=== PATIENT | male | born 1940 | race Caucasian/White ===

== ENCOUNTER 2016-12-08 09:14 | Emergency (ER) | payer OTHER ==
[~2016-12-08] VITALS: Wt 99.8 kg
[~2016-12-08 09:14] MED LIST: 'XANAX0.25 MG PO; ALBUTEROL INH; ALLEGRA ALLERGY60 M2 PO; AMOXICILLIN250 MG PO; AMOXICILLIN500 M3 PO; ASPIR 8181 MG PO; ASPIRIN81 M1 PO; CARVEDILOL3.125 MG PO; CEFUROXIME AXE250 MG PO; CENTRUM1 TAB PO; CIPRO500 MG PO; COLACE1 SUP R; COLACE100 MG PO; DOXYCYCLINE MO100 M1 PO; DUONEB 3 MG/3 ML3 M1 NEB; EXELON4.6 MG/24 T; FEXOFENADINE H180 MG PO; FEXOFENADINE60 MG PO; FLOMAX0.4 MG PO; FLONASE0.05 MG/AC NS; FLOVENT DI50 MCG/ACT IH; GABAPENTIN300 MG PO; LANOXIN0.125 MG PO; LASIX20 MG PO; LASIX40 MG PO; LEVOTHYROXIN0.025 MG PO; LEVOTHYROXINE0.05 MG PO; LISINOPRIL/HCTZ1 TA1 PO; LISINOPRIL10 M1 PO; LISINOPRIL20 MG PO; LISINOPRIL5 MG PO; Lopressor25 MG PO; MEDROL DOSEPAK4 MG PO; METOPROLOL50 MG PO; MIRAPEX0.5 MG PO; MUCOMIST 26 GM/30 ML INH; MUPIROCIN2% TP; NITROFURAN25 MG/5 M2 PO; OMEPRAZOLE D/R20 MG PO; OMEPRAZOLE MAGN20 MG PO; OMEPRAZOLE20 MG PO; OXAPROZIN600 MG PO; OXYCODONE HCL10 M1 PO; OXYCODONE HCL5 MG PO; OXYCONTIN10 MG PO; PAROXETINE HCL20 MG PO; PAXIL20 M1 PO; PRAVACHOL20 MG PO; PRAVASTATIN SOD20 MG PO; PREDNISONE10 MG PO; PROTONIX40 MG PO; PULMICORT RESP0.5 MG NEB; REQUIP0.5 MG PO; RIVASTIGMINE1 EACH T; ROPINIROLE HYDRO1 MG PO; SINGULAIR4 MG PO; SOLU-MEDROL40 MG PO; Synthroid,Levo75 MCG PO; TAMSULOSIN HYD0.4 MG PO; TERAZOSIN5 MG PO; Ventolin 02.5 MG/3 M INH; XALATAN 0.005%2.5 ML INTRAOC; XANAX0.5 MG PO; ZITHROMAX250 MG PO; ZOSYN 50 ML50 ML IV
[2016-12-08 09:31] VITALS: BP 123/66
== END 2016-12-08 10:05 | disposition home or self-care (01) ==
LOC: ED 09:14
DX: T83.010A Breakdown (mechanical) of cystostomy catheter, initial encounter (principal); F17.200 Nicotine dependence, unspecified, uncomplicated; I13.0 Hypertensive heart and chronic kidney disease with heart failure and stage 1 through stage 4 chronic kidney disease, or unspecified chronic kidney disease; I50.9 Heart failure, unspecified; J44.9 Chronic obstructive pulmonary disease, unspecified; Z79.899 Other long term (current) drug therapy

== ENCOUNTER 2016-12-24 15:33 | Inpatient (IN) | payer OTHER ==
[~2016-12-24] VITALS: Ht 180.3 cm; Wt 76.2 kg
--- NOTE | ~2016-12-24 | DS ---
[place], [place] DISCHARGE SUMMARY NAME: BARBRA LAMB [facility] #: [id number] UNIT #: [id number] ROOM: 521 DOCTOR: LIBORIO ODOM MD BIRTHDATE: [birth year] DOS: 12/28/2016 The patient is very well known to us, was admitted on 12/24/2016, discharged 12/28/2016. DIAGNOSES: 1. Urinary tract infection with pseudomonas sensitive to meropenem and Zosyn. Negative blood cultures. 2. Adult failure to thrive. 3. Difficulty swallowing, status post percutaneous endoscopic gastrostomy tube placement. 4. History of suprapubic catheter placement. 5. Benign hypertension. 6. Mixed hyperlipidemia. 7. History of benign prostatic hypertrophy with a suprapubic catheter placement. 8. Frailty with falls, history of chronic low back pain with history of laminectomy, avoid too many pain medications and anxiolytics in this patient because of his continued confusion and frequent falling. HOSPITAL COURSE: This patient is very well known to us, comes in with complaints the urine was dark and cloudy and he was quite confused. The patient was diagnosed with possible UTI and sepsis and was admitted. After admission, IV fluids were given, IV antibiotics were started. Wooten cultures were done. Blood cultures are negative. Urine culture shows Pseudomonas aeruginosa. The patient underwent a speech study and Dr. Salcedo was consulted. A PEG tube was placed. The patient is tolerating PEG feeding. He is currently n.p.o. Speech needs to work with him and try to advance his diet if possible as an outpatient when he is more strong. He is fairly awake and alert and oriented right now, but he does get agitated and tries to climb out of bed, which is a continued problem and will keep happening even at the custodial, so we have to be careful. I have avoided giving him any anxiolytics and pain medications because of his confusion. For his tinea infection, he has been placed on nystatin cream. His pressures are fairly controlled. His last labs, WBC count is 9.9, hemoglobin 12.6, hematocrit 39.0, platelets 285. BMP: Glucose 68, BUN 11, creatinine 0.64. Electrolytes were normal. DISCHARGE MEDICATIONS: Nystatin cream for local application to intertriginous areas, cyclobenzaprine 5 mg twice a day p.r.n., Pravachol 20 daily, lisinopril 2.5 daily, Paxil 20 daily, Lasix which has been discontinued, omeprazole 20 daily, levothyroxine 50 mcg daily, meropenem 1 g q. 8 for 7 more days, oxycodone 5 b.i.d. p.r.n. DIET: Isosource tube feeding at 30 mL an hour. [place], [place] DISCHARGE SUMMARY NAME: BARBRA LAMB [facility] #: [id number] UNIT #: [id number] ROOM: 521 DOCTOR: LIBORIO ODOM MD BIRTHDATE: [birth year] LIBORIO ODOM MD CM:ANAYA 0 LIBORIO ODOM MD 12/28/16 0943 interface
--- NOTE | ~2016-12-24 | PR ---
[place], [place] PROGRESS NOTE [id number] #: [id number] ROOM: 521 DOCTOR: LIBORIO ODOM MD BIRTHDATE: [birth year] DOS: 12/26/2016 SUBJECTIVE: The patient is feeling okay, does not have any new complaints. He states he is feeling better. Nurses told me that he was quite agitated, but this morning he is fairly awake and alert and oriented, did communicate. OBJECTIVE: VITAL SIGNS: Blood pressure is 128/73, pulse of 85, respirations 20, temperature 97.5. LUNGS: Diminished breath sounds, a few scattered rhonchi which is chronic. HEART: Regular. ABDOMEN: Soft. EXTREMITIES: Without any edema. Multiple pressure point areas are red. LABORATORY DATA: Urine culture shows Pseudomonas aeruginosa, which is not sensitive to floxins. BMP this morning, glucose 68, BUN 11, creatinine 6.64. Electrolytes were normal. WBC count is normal at 9.9. ASSESSMENT AND PLAN: 1. Rhabdomyolysis following a fall, which is improving, myoglobin will be ordered for tomorrow. He is on slow IV hydration. 2. Urinary tract infection with Pseudomonas aeruginosa, meropenem will be started. 3. Adult failure to thrive. Social Service will be consulted for placement. LIBORIO ODOM MD CM:PNTRANS [id number] LIBORIO ODOM MD 12/27/16 0025 interface
--- NOTE | ~2016-12-24 | PR ---
[place], [place] PROGRESS NOTE [id number] #: [id number] ROOM: 510 DOCTOR: LIBORIO ODOM MD BIRTHDATE: [birth year] DOS: 12/28/2016 SUBJECTIVE: The patient is doing fine without any complaints. Denies any chest pains, palpitations. He says he feels better, but he is agitated and tries to climb out of bed. OBJECTIVE: VITAL SIGNS: Pressure is 119/66, pulse of 104, respirations 20, temperature 98.1. LUNGS: Diminished breath sounds. No wheezes heard. HEART: Regular. ABDOMEN: Soft. PEG tube in place, suprapubic catheter in place. No redness noticed around these tubes. LABORATORY DATA: Blood culture shows no bacterial growth. Urine culture shows Pseudomonas sensitive to meropenem, which the patient is already on. ASSESSMENT AND PLAN: 1. Urinary tract infection with Klebsiella pneumoniae on intravenous meropenem, which we will continue as an outpatient. 2. PEG tube placement for difficulty swallowing. He started on his diet. 3. Suprapubic catheter placement. Catheter site had some fungal infection, which is corrected. 4. Adult failure to thrive for placement today. LIBORIO ODOM MD CM:PNTRANS [phone] LIBORIO ODOM MD 12/29/166 interface
--- NOTE | ~2016-12-24 | PR ---
[place], [place] PROGRESS NOTE NAME: BARBRA LAMB [facility] #: [id number] UNIT #: [id number] ROOM: 521 DOCTOR: LIBORIO ODOM MD BIRTHDATE: [birth year] DOS: 12/27/2016 SUBJECTIVE: The patient is about the same. Does not have any new complaints. The patient underwent PEG tube placement after the endoscopy. Dr. Salcedo felt that the patient needed a PEG tube placement. OBJECTIVE: VITAL SIGNS: This morning, blood pressure is 128/68, pulse of 52, respirations 22, temperature 97.9. LUNGS: Diminished breath sounds. No wheezes, rales or rhonchi heard this morning except for a few chronic rhonchi. HEART: Regular. ABDOMEN: Obese, soft. PEG tube and suprapubic site looks clean. EXTREMITIES: Without any edema. ASSESSMENT AND PLAN: 1. Urinary tract infection with the Pseudomonas aeruginosa on IV meropenem with negative blood cultures. 2. Adult failure to thrive, to go to a rehab center when precertification is obtained. 3. Difficulty swallowing. The patient underwent a PEG tube placement yesterday. PEG feeding will be started today. LIBORIO ODOM MD CM:LUZ [id number] LIBORIO ODOM MD 12/28/16 0100 interface
--- NOTE | ~2016-12-24 | O ---
[place], [place] OPERATIVE NOTE NAME: BARBRA LAMB UNIT #: [id number] ROOM: 521 DOCTOR: JAVI AUGUSTIN MD BIRTHDATE: [birth year] DOS: 12/26/2016 INDICATIONS: A 76-year-old patient who has presented with chief complaint of dysphagia, epigastric distress, and abdominal pain. The patient with tracheostomy, suprapubic catheter, dysphagia, epigastric pain, emaciation. Bedridden essentially. PROCEDURE: Today's procedure part of investigation is panendoscopy plus PEG tube placement. PREMEDICATION: Versed and Diprivan. SCOPE: Olympus forward-viewing gastroscope Q10 video. REPORT: After putting the patient in the left lateral position and after application of lubricant to the scope, the scope was introduced. Thereafter, under direct visualization, advanced through the length of the esophagus without difficulty. Esophagus, cervical, thoracic and distal within normal limits. Gastric pouch was entered. Gastritis was noticed. Duodenal bulb, second and third part within normal limits. Antral biopsy obtained. After this, the patient was placed in supine position. Case was discussed with the son. After this patient was placed in supine position, anterior abdominal wall aseptically was prepped. Transillumination sign in the subxiphoid area was noticed. 2 mL of Xylocaine was injected. Trocar was introduced in the same spot. Guidewire was advanced, grasped with forceps, orally extracted. Gastrostomy tube Sami 20 was anchored to it, orally recovered and anchors placed, patency checked. Tolerated the procedure well. IMPRESSION: Gastritis, dysphagia, weight loss, trach dependency, suprapubic catheter dependency, and now percutaneous endoscopic gastrostomy tube placement. PLAN AND DISCUSSION: Ensure 1 can 6 times per day. Flush of water 100 mL q. 3 hours. At the present time, keeping the patient n.p.o. until future reassessment of the swallow. [place], [place] OPERATIVE NOTE NAME: BARBRA LAMB UNIT #: [id number] ROOM: 521 DOCTOR: JAVI AUGUSTIN MD BIRTHDATE: [birth year] JAVI AUGUSTIN MD CM:OPRECORD:OPERATIVE NOTE [id number] LIBORIO AUGUTSIN MD 12/26/16 1639 interface
--- NOTE | ~2016-12-24 | CON ---
[place], [place] REPORT OF CONSULTATION [id number] UN[facility] #: [id number] ROOM: 521 DOCTOR: JAVI AUGUSTIN MD BIRTHDATE: [birth year] DOS: 12/26/2016 GASTROENDOSCOPIC REPORT HISTORY OF PRESENT ILLNESS: A 76-year-old patient who has presented with chief complaint of abdominal pain, epigastric distress, undergoing investigation. The patient with also pelvic pain, also testicular sac pain, suspected epididymitis. PAST MEDICAL HISTORY: Associated with hypertension, hyperlipidemia, respiratory insufficiency, tracheostomy, multiple falls, suprapubic catheter, trach as a part of the surgical finding. SOCIAL HISTORY: Nonsmoker, nonalcohol consumer. FAMILY HISTORY: Noncontributory. ALLERGIES: To no known medication. REVIEW OF SYSTEMS: GENERAL: Very difficult to communicate, however. HEENT: Denies double vision, blurred vision. RESPIRATORY: Denies shortness of breath; however, on tracheostomy. CARDIOVASCULAR: Denies chest pain. DIGESTIVE SYSTEM: Epigastric pain, abdominal pain. PHYSICAL EXAMINATION: Otherwise, HEENT: Within normal limit. Mouth some thrush. Edentulous. NECK: Supple, no thyromegaly. Tracheostomy in place. LUNGS: Decreased air entry bilaterally. HEART: Normal sinus rhythm, no gallop, no murmur. ABDOMEN: Flat, soft. No hepato-organomegaly. Bowel sounds present. Suprapubic catheter in place. EXTREMITIES: Muscle wasting noticed. NEUROLOGIC: Appears to be alert. LABORATORY DATA: Reviewed. INR 1.1. Lactic acid 1.2. CBC: White blood cell 12, H and H of 12 and 40. Urinalysis unremarkable. Chest x-ray, no acute disease. Comprehensive metabolic panel, electrolytes balanced. Liver function test, SGOT 80. C-reactive protein 13. BNP of 900. Troponin within normal limit. Urine cultures, greater than 100,000 bacteria. CBC differential within normal limits. Electrolytes balanced. IMPRESSION: Abdominal pain, epigastric distress, respiratory insufficiency, history of congestive heart failure, history of urinary tract infection, angina, hypertension, dyspnea, chronic obstructive pulmonary disease, anxiety, depression, hiatal hernia, all has been noticed from old records, hyperlipidemia, hypertension, laminectomy, back pain, tracheostomy and suprapubic catheter all reviewed. PLAN AND DISCUSSION: Endoscopic assessment of upper tract. [place], [place] REPORT OF CONSULTATION NAME: BARBRA LAMB UNIT #: [id number] ROOM: 521 DOCTOR: CHARLI DICKEY,JAVI BIRTHDATE: [birth year] JAVI AUGUSTIN MD CM:CONSTR:REPORT OF CONSULTATION 1053 12/27/16 0329 interface
--- NOTE | ~2016-12-24 | WRIGHTHP ---
[place], [place] PATIENT HISTORY AND PHYSICAL EXAM NAME: BARBRA LAMB [facility] #: [id number] UNIT #: [id number] ROOM: 521 DOCTOR: LIBORIO ODOM MD BIRTHDATE: [birth year] DOS: 12/25/2016 HISTORY OF PRESENT ILLNESS: This patient is very well known to us, brought in by family members stating that his urine was quite cloudy and dark, and he was getting more confused. He was evaluated in the ER, was found to have UTI with sepsis and was admitted. This morning, the patient is sitting up in a Shannan chair, seems to lean over to the right side. He states that he does not have any chest pains or palpitations. He does not have any fever or chills, does not have any abdominal pain, nausea, any emesis. He has had multiple falls at the home as per the visiting nurses. He lives at home with his son and family members taking turns helping him. PAST MEDICAL HISTORY: 1. Significant for frailty with multiple falls. 2. Chronic low back pain with history of laminectomy. 3. Benign hypertension. 4. Mixed hyperlipidemia. 5. Benign prostatic hypertrophy with suprapubic catheter placement. SOCIAL HISTORY: Nonsmoker, does not use any alcohol. Lives at home. PHYSICAL EXAMINATION: GENERAL: The patient is awake and alert and oriented. VITAL SIGNS: Shows blood pressure 132/70, regular respirations 14-20, afebrile. HEAD AND NECK: Within normal limits. LUNGS: Clear. HEART: Regular. ABDOMEN: Soft. EXTREMITIES: Without any edema. noticed in the intertriginous area. Suprapubic catheter in place. Excoriations to the skin noticed to the left buttock and canela area on the left and right legs. ASSESSMENT AND PLAN: 1. Urinary tract infection with sepsis. Cultures have been sent. IV fluids have been ordered. IV antibiotics started. We will readjust antibiotics depending on the culture results. 2. Adult failure to thrive with frailty and fall. CK and myoglobin elevated suggesting the patient has underlying rhabdomyolysis. Again, the patient is on IV fluids. Repeat labs to be ordered to see whether this is improving. He is no longer a candidate for going home alone or may need consideration for placement. Social Service will be consulted. [place], [place] PATIENT HISTORY AND PHYSICAL EXAM [facility]: [facility] [id number] UNIT #: [id number] ROOM: 521 DOCTOR: LIBORIO ODOM MD BIRTHDATE: [birth year] LIBORIO ODOM MD CM:HISPHYS:PATIENT HISTORY AND PHYSICAL EXAMINATION 2138 LIBORIO ODOM MD 12/26/1656 interface
[2016-12-24 15:33] VITALS: BP 100/48
[2016-12-24 16:41] LABS: HEMATOCRIT 40.1 % (42.0-52.0); HEMOGLOBIN 12.8 g/dl (14.0-18.0); MEAN CELL VOLUME 83.7 fl (80.0-94.0); MEAN CORPUSCULAR HGB 26.7 pg (27.0-31.0); MEAN CORPUSCULAR HGB CONC 31.9 g/dl (33.0-37.0); MEAN PLATELET VOLUME 10.2 fl (9.6-12.3); PLATELET COUNT AUTOMATED 284 10*3/uL (130-400); RED BLOOD COUNT 4.79 10*6/uL (4.50-5.90); RED CELL DISTRI WIDTH 15.9 % (0-14.5); WHITE BLOOD COUNT 12.8 10*3/uL (4.8-10.8)
[2016-12-24 16:50] LABS: INTERNATIONAL NORM RATIO 1.1 (2.0-3.5); PROTHROMBIN TIME 11.8 SECONDS (9.0-12.4)
[2016-12-24 17:00] LABS: BASOPHIL # 0.3 10*3/uL (0-0.1); BASOPHILS 2 % (0-1); EOSINOPHIL # 0.1 10*3/uL (0-0.4); EOSINOPHILS 1 % (1-4); LYMPHOCYTE # 1.3 10*3/uL (1.3-4.4); MONOCYTE # 1.5 10*3/uL (0.1-1.0); NEUTROPHIL # 9.6 10*3/uL (2.3-7.9); NEUTROPHILS 75 % (47-73); TOTAL CELLS COUNTED 100 #CELLS
[2016-12-24 17:01] LABS: BURR CELLS FEW; PLATELET SUFFICIENCY NORMAL (NORMAL)
[2016-12-24 17:03] LABS: ACANTHOCYTES FEW
[2016-12-24 17:32] LABS: ALBUMIN 2.5 gm/dl (3.1-4.5); ALKALINE PHOSPHATASE 95 U/L (45-117); BILIRUBIN, TOTAL 0.9 mg/dl (0.2-1.0); BUN 14 mg/dl (7-24); CARBON DIOXIDE 23 mmol/L (21-32); CHLORIDE 101 mmol/L (98-107); EST GLOM FILT AFRICAN AMERICAN > 60 ml/min; GLUCOSE 98 mg/dL (65-99); POTASSIUM 4.1 mmol/L (3.5-5.1); SGOT/AST 80 IU/L (3-35); SGPT/ALT 20 U/L (12-78); SODIUM 135 mmol/L (136-145); TOTAL PROTEIN 6.2 gm/dL (6.4-8.2)
[2016-12-24 17:48] LABS: BILIRUBIN NEGATIVE (NEGATIVE); BLOOD TRACE-INTACT (NEGATIVE); CLARITY SL CLOUDY (CLEAR); COLOR YELLOW (YELLOW); GLUCOSE NEGATIVE (NEGATIVE); KETONE NEGATIVE (NEGATIVE); LEUKO ESTERASE 2+ (NEGATIVE); NITRITE NEGATIVE (NEGATIVE); PROTEIN TRACE (NEGATIVE); SPECIFIC GRAVITY 1.025 (1.005-1.030)
[2016-12-24 17:54] LABS: BACTERIA 4+; CALCIUM OXALATE CRYSTALS TRACE; RBC 0-2 rbc/hpf (0-2); URINE REFLEX COMMENT YES (NO); WBC TNTC wbc/hpf (0-5)
[2016-12-24 17:55] LABS: MUCOUS TRACE
[2016-12-24 18:03] LABS: CKMB 30.4 ng/ml (0.5-3.6); TROPONIN I < 0.015 ng/ml (<0.045)
[2016-12-24 18:30] LABS: CPK 1618 U/L (39-308)
[2016-12-24 18:38] LABS: MAGNESIUM 1.7 mg/dL (1.5-2.1)
[2016-12-24] MEDS ORDERED: CYCLOBENZAPRINE5 M3 PO (19:54)
[2016-12-24] MEDS ORDERED: 'XANAX0.5 MG PO (19:54)
[2016-12-24] MEDS ORDERED: PRAVACHOL20 MG PO (19:55)
[2016-12-24] MEDS ORDERED: OMEPRAZOLE D/R20 MG PO (19:55)
[2016-12-24] MEDS ORDERED: FUROSEMIDE20 M1 PO (19:56)
[2016-12-24] MEDS ORDERED: TAMSULOSIN HCL0.4 MG PO (19:56)
[2016-12-24 20:05] VITALS: BP 104/52
[2016-12-24 20:15] VITALS: BP 104/47
[2016-12-24 20:35] VITALS: BP 109/47
[2016-12-24] MEDS ORDERED: OXYCODONE HCL10 M1 PO (20:37)
[2016-12-25] VITALS: BP 125/67
[2016-12-25 06:45] LABS: CKMB 24.9 ng/ml (0.5-3.6)
[2016-12-25 08:00] VITALS: BP 80/50
[2016-12-25 12:00] VITALS: BP 120/68
[2016-12-25 16:00] VITALS: BP 114/54
[2016-12-25 20:00] VITALS: BP 145/65
[2016-12-26] VITALS (9 sets, daily range): BP systolic 78–134; BP diastolic 46–83
[2016-12-26 06:19] LABS: BASO # 0.1 10*3/uL (0.0-0.1); BASO % 0.9 % (0.0-1.0); EOS # 0.7 10*3/uL (0.0-0.4); EOS % 6.7 % (1.0-4.0); HEMOGLOBIN 12.6 g/dl (14.0-18.0); LYMPH # 1.4 10*3/uL (1.3-4.4); LYMPH % 14.3 % (27.0-41.0); MEAN CELL VOLUME 83.7 fl (80.0-94.0); MEAN CORPUSCULAR HGB CONC 32.3 g/dl (33.0-37.0); MEAN PLATELET VOLUME 10.7 fl (9.6-12.3); MONO # 1.1 10*3/uL (0.1-1.0); MONO % 11.4 % (3.0-9.0); NEUT # 6.6 10*3/uL (2.3-7.9); NEUT % 66.4 % (47.0-73.0); PLATELET COUNT AUTOMATED 285 10*3/uL (130-400); RED BLOOD COUNT 4.66 10*6/uL (4.50-5.90); RED CELL DISTRI WIDTH 15.9 % (0-14.5); WHITE BLOOD COUNT 9.9 10*3/uL (4.8-10.8)
[2016-12-26 06:33] LABS: BUN 11 mg/dl (7-24); CARBON DIOXIDE 24 mmol/L (21-32); CHLORIDE 104 mmol/L (98-107); EST GLOM FILT AFRICAN AMERICAN > 60 ml/min; GLUCOSE 68 mg/dL (65-99); POTASSIUM 3.8 mmol/L (3.5-5.1); SODIUM 139 mmol/L (136-145)
[2016-12-27] VITALS: BP 138/69
[2016-12-27 08:00] VITALS: BP 128/68
[2016-12-27 12:00] VITALS: BP 124/72
[2016-12-27 16:00] VITALS: BP 106/61
[2016-12-27 20:00] VITALS: BP 120/77
[2016-12-28] VITALS: BP 123/60
[2016-12-28 08:00] VITALS: BP 119/66
[2016-12-28] MEDS ORDERED: OXYCODONE HCL10 M1 PO (09:02)
[2016-12-28] MEDS ORDERED: Nystatin Cream15 GM T (09:02)
[2016-12-28] MEDS ORDERED: MEROPENEM1 G1 IV (09:03)
[2016-12-28] MEDS ORDERED: CYCLOBENZAPRINE5 M3 PO (09:10)
[2016-12-28 12:00] VITALS: BP 123/72
[2016-12-28 16:00] VITALS: BP 122/64
[2016-12-28 20:00] VITALS: BP 102/50
== END 2016-12-28 23:22 | disposition short-term general hospital (02) | DRG 871 ==
LOC: ED 15:33 → 5E 18:52 → EDHOLD 18:52 → 5E 19:55
PROVIDERS: Emergency Medicine; Internal Medicine
PROC: 0DB68ZX Excision of Stomach, Via Natural or Artificial Opening Endoscopic, Diagnostic (ICD-10-PCS; principal; 2016-12-26)
PROC: 0DH68UZ Insertion of Feeding Device into Stomach, Via Natural or Artificial Opening Endoscopic (ICD-10-PCS; principal; 2016-12-26)
PROC: 02HV33Z Insertion of Infusion Device into Superior Vena Cava, Percutaneous Approach (ICD-10-PCS; 2016-12-28)
DX: A41.9 Sepsis, unspecified organism (principal); G93.41 Metabolic encephalopathy; R06.89 Other abnormalities of breathing; M62.82 Rhabdomyolysis; R13.10 Dysphagia, unspecified; J44.9 Chronic obstructive pulmonary disease, unspecified; I50.9 Heart failure, unspecified; I11.0 Hypertensive heart disease with heart failure; N39.0 Urinary tract infection, site not specified; L03.311 Cellulitis of abdominal wall; E86.0 Dehydration; K29.70 Gastritis, unspecified, without bleeding; E78.2 Mixed hyperlipidemia; R54 Age-related physical debility; R62.7 Adult failure to thrive; W19.XXXA Unspecified fall, initial encounter; B96.5 Pseudomonas (aeruginosa) (mallei) (pseudomallei) as the cause of diseases classified elsewhere; F41.9 Anxiety disorder, unspecified; F32.9 Major depressive disorder, single episode, unspecified; K44.9 Diaphragmatic hernia without obstruction or gangrene; I20.9 Angina pectoris, unspecified; M54.9 Dorsalgia, unspecified; Y93.89 Activity, other specified; Y92.89 Other specified places as the place of occurrence of the external cause; Z82.49 Family history of ischemic heart disease and other diseases of the circulatory system; Y99.8 Other external cause status

== ENCOUNTER 2017-01-03 20:00 | Inpatient (IN) | payer OTHER ==
[2017-01-03] VITALS (7 sets, daily range): BP systolic 100–125; BP diastolic 56–70
[~2017-01-03] VITALS: Ht 188 cm; Wt 74.6 kg
--- NOTE | ~2017-01-03 | PR ---
[place], [place] PROGRESS NOTE [id number] UN[facility] #: [id number] ROOM: 408 DOCTOR: LIBORIO ODOM MD BIRTHDATE: [birth year] DOS: SUBJECTIVE: The patient complains of itching. He has a pinkish rash on his chest wall. Rest of his skin is pretty clear. He did pull out his suprapubic catheter. Dr. Duff from the ER came in and reinserted. OBJECTIVE: VITAL SIGNS: Graphic trend shows a pressure of 133/77, pulse of 90, respirations 14, temperature 97.7. LUNGS: Diminished breath sounds. HEART: Regular. ABDOMEN: Scaphoid. EXTREMITIES: Contracted down. LABORATORY DATA: Urine culture preliminary shows no bacterial growth. Acute abdominal series shows improvement in the small bowel obstruction. WBC count is 8.5, hemoglobin 10.6. ASSESSMENT AND PLAN: 1. Small bowel obstruction, which is resolving. The patient was placed back on his diet and he is tolerated this tube feeding. 2. Pleuritis with redness of his chest wall, could be an allergic reaction, only new medication that was given was one dose of Risperdal that was given yesterday. I advised them to discontinue the medication and Atarax and topical gel were given. 3. Chronic suprapubic catheter, which was pulled out, again reinserted. Cultures so far coming back negative. We may discontinue the meropenem. 4. Adult failure to thrive. 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 We are planning to discharge him to [place] at least for short term. LIBORIO ODOM MD CM:PNTRANS [phone] 3 LIBORIO ODOM MD 01/06/17803 interface
--- NOTE | ~2017-01-03 | PR ---
[place], [place] PROGRESS NOTE NAME[facility] [id number] UNIT #: [id number] ROOM: 408 DOCTOR: LIBORIO ODOM MD BIRTHDATE: [birth year] DOS: 01/05/2017 SUBJECTIVE: The patient is resting comfortably. He has not had any problems. Yesterday, daytime, he did get agitated and was combative with the staff and Dilaudid was given. After that, he does not have any pain, nor any agitation. This morning, he complains of some minimal nausea. He has not had any emesis or any diarrhea. No fever or chills. OBJECTIVE: VITAL SIGNS: Blood pressure is 148/76, pulse of 85, respirations 16, temperature 97.4. LUNGS: Diminished breath sounds, clear. HEART: Regular. ABDOMEN: Soft. Bowel sounds hypoactive. PEG tube in place. Suprapubic catheter in place. Some redness in the intertriginous areas as well as the scrotal wall. EXTREMITIES: Without any edema. LABORATORY DATA: None available today. The patient refused. Acute abdominal series is pending. ASSESSMENT AND PLAN: 1. The patient admitted with small bowel obstruction. Acute abdominal series continues to show improvement, so the patient has been kept n.p.o. and repeat abdominal series is pending today. 2. Acute gastritis, recently scoped here last week and then I believe again in [place], so we are waiting for records from [facility] to see and decide what event therefore. 3. Adult failure to thrive. PT, OT consult has been obtained and the patient to go to [place] when certified. 4. Recent urinary tract infection, IV meropenem. Urine culture is pending. LIBORIO ODOM MD CM:PNTRANS 6 [phone] LIBORIO ODOM MD 01/05/17 1115 interface
--- NOTE | ~2017-01-03 | PR ---
[place], [place] PROGRESS NOTE NAME: [facility] [id number] UNIT #: [id number] ROOM: 408 DOCTOR: LIBORIO ODOM MD BIRTHDATE: [birth year] DOS: 01/08/2017 SUBJECTIVE: The patient is resting comfortably, does not have any new complaints. He did have a restful night. OBJECTIVE: VITAL SIGNS: Pressure is 114/71, pulse of 80, respirations 18, temperature 98.5. LUNGS: Clear. HEART: Regular. ABDOMEN: Soft. EXTREMITIES: Without any edema. LABORATORY DATA: No labs available this morning. ASSESSMENT AND PLAN: Small bowel obstruction resolved, UTI with Pseudomonas which is also resolved. The patient is off IV fluids and IV antibiotics. The plan is to discharge him to [place] today. LIBORIO ODOM MD CM:PNADALBERTO 07 27 LIBORIO ODOM MD 01/08/172127 interface
--- NOTE | ~2017-01-03 | WRIGHTHP ---
[place], [place] PATIENT HISTORY AND PHYSICAL EXAM NAME: [facility] #: [id number] UNIT #: [id number] ROOM: 408 DOCTOR: LIBORIO ODOM MD BIRTHDATE: [birth year] DOS: 01/03/2017 HISTORY OF PRESENT ILLNESS: The patient is 76 years old, was admitted yesterday from home with complaints of coffee-ground emesis. The patient was admitted here last week, was discharged on the of this month after a PEG tube placement. For a UTI, he was sent to a [facility] where he was treated with IV meropenem. He was discharged home on the . On 01/03, the family stated that the patient was having coffee-ground emesis, was brought to the Emergency Room. He denies having any chest pains or palpitations, does not have any fever or chills. He is trying to talk, but it was very difficult to understand, speech appeared to be quite garbled this morning. He does not appear to be nauseous and he has not had any emesis this morning. During the night when he came into the ER, minimal amount of material was suctioned out with an NG tube, but he pulled the NG tube out and no PEG with suction was ordered in the ER. The NG tube after being brought to the floor had no output at all before he pulled it out. The patient complains of back pain, but otherwise is about the same, appears to be in no distress at all. PAST MEDICAL HISTORY: Significant for: 1. Last admission here from 12/24-12/28, he was discharged on the to [place] for UTI with Pseudomonas, was on meropenem. 2. Adult failure to thrive. 3. Recent PEG tube placement for difficulty swallowing. 4. Suprapubic catheter placement. 5. Chronic low back pain. 6. Metabolic encephalopathy, multifactorial. 7. Benign hypertension. 8. Gastritis, for which he was on proton pump inhibitors. Gastritis on a recent endoscopy in fact last week by Dr. Salcedo. MEDICATIONS: Protonix, lovastatin, Risperdal, oxycodone, Xanax p.r.n. His medications were readjusted last admission, I will dictate in a minute the exact once the computer starts working. PHYSICAL EXAMINATION: GENERAL: The patient is awake and alert, oriented to person and place. VITAL SIGNS: Show blood pressure of 132/70, pulse of 78, respirations 14, afebrile. LUNGS: Diminished breath sounds, clear. HEART: Regular. ABDOMEN: Obese, soft. PEG in place, suprapubic catheter in place. PEG tube site looks intact. Suprapubic site looks intact. Bowel sounds hypoactive. EXTREMITIES: Without any edema, slightly contracted left lower extremity. ASSESSMENT AND PLAN: The patient presents with: 1. Coffee-ground emesis. He already has history of gastritis, was just scoped last week and is on proton pump inhibitors, which will be continued. 2. Possibility of small bowel obstruction noted. Bowel sounds hypoactive. He again did not have any material on the NG suctioning. He had pulled out the NG tube during the night. NG will not be inserted. We will do an acute abdominal [place], [place] PATIENT HISTORY AND PHYSICAL EXAM [facility]: [facility]: [id number] UNIT #: [id number] ROOM: [facility] DOCTOR: LIBORIO ODOM MD BIRTHDATE: [birth year] series this morning to decide on further treatment. 3. Recent urinary tract infection with Pseudomonas, on IV meropenem, which was continued by Dr. Murrell during the night. 4. Chronic back pain, dosage of oxycodone has been decreased. 5. Adult failure to thrive. This patient really needs long-term placement and should not live at home on his own. LIBORIO ODOM MD CM:HISPHYS:PATIENT HISTORY AND PHYSICAL EXAMINATION [phone] LIBORIO ODOM MD 01/04/17 0952 interface
--- NOTE | ~2017-01-03 | DS ---
[place], [place] DISCHARGE SUMMARY NAME: BARBRA LAMB [facility] #: [id number] UNIT #: [id number] ROOM: 408 DOCTOR: LIBORIO ODOM MD BIRTHDATE: [birth year] DOS: 01/07/2017 DIAGNOSES: 1. Small-bowel obstruction, resolved, clinically and radiologically. 2. UTI with Pseudomonas aeruginosa, was on IV meropenem since 12/24, resolved. Repeat urine culture done during this admission shows complete clearing of the infection. 3. Adult failure to thrive with multiple falls. 4. Contractures of both extremities, needing long-term physical therapy and possible long-term care placement for this patient. 5. History of PEG tube placement. 6. History of suprapubic catheter placement. 7. Low back pain. 8. Osteoarthritis, primarily of the lumbar spine with history of laminectomy. 9. Metabolic encephalopathy, multifactorial. 10. Benign hypertension. 11. Acute gastritis. DISCHARGE MEDICATIONS: Will be cyclobenzaprine 5 mg twice daily p.r.n. for muscle spasms, Pravachol 20 daily, lisinopril 2.5 mg daily, oxycodone 5 mg 3 times a day p.r.n., Paxil 20 mg daily, omeprazole 20 mg daily, levothyroxine 50 mcg daily, nystatin for local application to the intertriginous areas, hydroxyzine 10 mg twice daily p.r.n. for anxiety. HOSPITAL COURSE: The patient is 76 years old, very well known to us. He comes in with nausea and emesis. After admission, the patient was placed on IV meropenem, which he was already on for UTI. Continued on his home health and tube feeding, suprapubic catheter and PEG tube was in place. During the admission, he pulled out the suprapubic catheter and has been reinserted by Dr. Duff in the ER. He was kept n.p.o. and the small-bowel obstruction resolved on its own. The patient was restarting the diet and has tolerated it and has not had any nausea or emesis. He recently had endoscopies, so this was not repeated. He has gastritis. He is already on proton pump inhibitors. He has chronic pain in the lower legs, low back and he requested pain medications. The dosage of the pain medicine has been cut back because ____ periodic confusion. His anxiety is under control with Atarax. The patient is needing to go back to rehab center for continued therapy. He has severe contractures of both the lower legs, worse on the right. The patient has a tendency to stand up and tried to walk, not knowing that he is unable to walk with these contractures, ____ results in multiple falls. The patient needs to continue his exercise program at a long-term care rehab facility to try to help stretch his contractures out and if it does not work out, he will need to be long-term placed because he cannot live at home alone. His urine culture was repeated here, that has shown complete clearing of the recent pseudomonas, so the meropenem has been discontinued. The patient is overall stable and improved. The plan is to discharge him to [place] today if certification is available from the insurance. [place], [place] DISCHARGE SUMMARY [facility] [id number] UNIT #: [id number] ROOM: [facility] DOCTOR: LIBORIO ODOM MD BIRTHDATE: [birth year] LIBORIO ODOM MD CM:ANAYA [phone] LIBORIO ODOM MD 01/07/17 1733 interface
--- NOTE | ~2017-01-03 | ED ---
[place], [place] EMERGENCY DEPARTMENT REPORT NAME: BARBRA LAMB UNIT #: [id number] PT STATUS: ADM IN DOCTOR: MOHAN DOW M.D. ROOM #: 408 DOS: 01/05/2017 I was asked by Dr. Parra to reinsert a suprapubic catheter on a patient who removed it himself. The patient is confused. Upon arrival to the bedside, the patient was in no acute distress. He is pleasantly confused and he is contracted. PHYSICAL EXAMINATION: GENERAL: The catheter was lying on the bed when I arrived in the room and the patient was in no acute distress. LUNGS: Clear. HEART: Regular and rhythmic without murmur, gallop or rub. ABDOMEN: Soft and nontender. There was no bleeding or discharge from the suprapubic os. PROCEDURE: The area was cleaned with Surgicleanse and/or Shur-Clens, and an 18-gauge catheter was introduced into the stoma in the suprapubic area without difficulty. 5 mL of water was instilled into the balloon. Urine was obtained through the Ross catheter. The catheter was anchored in place with a 3-0 nylon suture. That area was also prepped with Shur-Clens and anesthetized with 1% lidocaine with epinephrine. IMPRESSION: Suprapubic catheter replacement. MOHAN DOW MD CM:EDRPT:EMERGENCY DEPARTMENT REPORT [id number]
--- NOTE | ~2017-01-03 | PR ---
[place], [place] PROGRESS NOTE NAME: BARBRA LAMB [facility] #: [id number] UNIT #: [id number] ROOM: 408 DOCTOR: LIBORIO ODOM MD BIRTHDATE: [birth year] DOS: 01/07/2017 SUBJECTIVE: The patient is doing fine without any complaints other than his pain. He seems to have a lot more pain in his hip today. OBJECTIVE: VITAL SIGNS: Blood pressure is 100/60, pulse of 91, respirations 16, temperature 98.9. LUNGS: Clear. HEART: Regular. ABDOMEN: Soft, scaphoid. PEG tube in place. EXTREMITIES: Without any edema, contractures noticed in both legs, especially pronounced in the right leg. LABORATORY DATA: WBC count is normal at 8.5. Urine culture shows no bacterial growth, which is the final. ASSESSMENT AND PLAN: 1. Urinary tract infection with pseudomonas. He was getting treated with meropenem since the . Urine culture has finally come back negative, we can discontinue the IV fluids. 2. Small-bowel obstruction, which has improved clinically as well as radiologically. The patient is tolerating the tube feeding. 3. Adult failure to thrive with contractures and multiple falls because the patient does not understand the contractures make it difficult for him to walk. He should go to [place] if the approval is obtained from the insurance company. LIBORIO ODOM MD CM:PNTRANS [phone] LIBORIO ODOM MD 01/08/17 0157 interface
[~2017-01-03 20:00] MED LIST changes: +'XANAX0.5 MG PO; +CYCLOBENZAPRINE5 M3 PO; +FUROSEMIDE20 M1 PO; +MEROPENEM1 G1 IV; +Nystatin Cream15 GM T; +TAMSULOSIN HCL0.4 MG PO
[2017-01-03 20:21] LABS: BASO # 0.1 10*3/uL (0.0-0.1); BASO % 0.7 % (0.0-1.0); EOS # 0.3 10*3/uL (0.0-0.4); EOS % 1.8 % (1.0-4.0); HEMATOCRIT 38.3 % (42.0-52.0); HEMOGLOBIN 12.3 g/dl (14.0-18.0); IG # 0.1 10*3/uL (0.0-0.1); LYMPH # 1.6 10*3/uL (1.3-4.4); LYMPH % 9.3 % (27.0-41.0); MEAN CELL VOLUME 81.7 fl (80.0-94.0); MEAN CORPUSCULAR HGB 26.2 pg (27.0-31.0); MEAN CORPUSCULAR HGB CONC 32.1 g/dl (33.0-37.0); MEAN PLATELET VOLUME 9.9 fl (9.6-12.3); MONO # 1.4 10*3/uL (0.1-1.0); MONO % 8.4 % (3.0-9.0); NEUT # 13.4 10*3/uL (2.3-7.9); NEUT % 79.4 % (47.0-73.0); PLATELET COUNT AUTOMATED 407 10*3/uL (130-400); RED BLOOD COUNT 4.69 10*6/uL (4.50-5.90); RED CELL DISTRI WIDTH 15.6 % (0-14.5); WHITE BLOOD COUNT 16.9 10*3/uL (4.8-10.8)
[2017-01-03 20:31] LABS: INTERNATIONAL NORM RATIO 1.1 (2.0-3.5); PROTHROMBIN TIME 11.5 SECONDS (9.0-12.4)
[2017-01-03 20:39] LABS: ALBUMIN 2.6 gm/dl (3.1-4.5); ALKALINE PHOSPHATASE 101 U/L (45-117); BILIRUBIN, DIRECT 0.2 mg/dL (0.0-0.2); BILIRUBIN, TOTAL 0.6 mg/dl (0.2-1.0); BUN 10 mg/dl (7-24); CARBON DIOXIDE 28 mmol/L (21-32); CHLORIDE 101 mmol/L (98-107); EST GLOM FILT AFRICAN AMERICAN > 60 ml/min; GLUCOSE 115 mg/dL (65-99); POTASSIUM 4.2 mmol/L (3.5-5.1); SGOT/AST 32 IU/L (3-35); SGPT/ALT 28 U/L (12-78); SODIUM 137 mmol/L (136-145); TOTAL PROTEIN 6.3 gm/dL (6.4-8.2)
[2017-01-03 20:45] LABS: TROPONIN I < 0.015 ng/ml (<0.045)
[2017-01-03 22:19] LABS: LA>2 REFLEX 2 HR DRAW NOW
[2017-01-03 22:47] LABS: BILIRUBIN 2+ (NEGATIVE); BLOOD 3+ (NEGATIVE); CLARITY CLOUDY (CLEAR); COLOR YELLOW (YELLOW); GLUCOSE TRACE (NEGATIVE); KETONE 1+ (NEGATIVE); LEUKO ESTERASE TRACE (NEGATIVE); NITRITE NEGATIVE (NEGATIVE); PH 5.5 (5.0-9.0); PROTEIN 2+ (NEGATIVE); SPECIFIC GRAVITY 1.025 (1.005-1.030)
[2017-01-03 22:52] LABS: BACTERIA 2+
[2017-01-03 22:53] LABS: RBC 51-100 rbc/hpf (0-2); WBC 16-20 wbc/hpf (0-5)
[2017-01-03 22:54] LABS: URINE REFLEX COMMENT YES (NO)
[2017-01-04] VITALS: BP 105/60
[2017-01-04 06:39] LABS: BASO # 0.1 10*3/uL (0.0-0.1); BASO % 0.8 % (0.0-1.0); EOS # 0.3 10*3/uL (0.0-0.4); EOS % 2.7 % (1.0-4.0); HEMATOCRIT 32.7 % (42.0-52.0); HEMOGLOBIN 10.5 g/dl (14.0-18.0); LYMPH # 1.3 10*3/uL (1.3-4.4); LYMPH % 12.8 % (27.0-41.0); MEAN CORPUSCULAR HGB 26.6 pg (27.0-31.0); MEAN CORPUSCULAR HGB CONC 32.1 g/dl (33.0-37.0); MEAN PLATELET VOLUME 11.2 fl (9.6-12.3); MONO # 1.2 10*3/uL (0.1-1.0); MONO % 11.8 % (3.0-9.0); NEUT % 71.5 % (47.0-73.0); RED BLOOD COUNT 3.94 10*6/uL (4.50-5.90); RED CELL DISTRI WIDTH 15.6 % (0-14.5); WHITE BLOOD COUNT 9.8 10*3/uL (4.8-10.8)
[2017-01-04 06:44] LABS: BUN 14 mg/dl (7-24); CARBON DIOXIDE 30 mmol/L (21-32); CHLORIDE 100 mmol/L (98-107); EST GLOM FILT AFRICAN AMERICAN > 60 ml/min; GLUCOSE 84 mg/dL (65-99); POTASSIUM 3.6 mmol/L (3.5-5.1); SODIUM 137 mmol/L (136-145)
[2017-01-04 06:45] LABS: PLATELET COUNT AUTOMATED 284 10*3/uL (130-400)
[2017-01-04 08:00] VITALS: BP 150/76
[2017-01-04 12:00] VITALS: BP 122/54
[2017-01-04 16:00] VITALS: BP 121/68
[2017-01-04 20:00] VITALS: BP 148/76
[2017-01-05 08:00] VITALS: BP 122/84
[2017-01-05 12:00] VITALS: BP 118/72
[2017-01-05 16:00] VITALS: BP 159/95
[2017-01-05 20:00] VITALS: BP 131/65
[2017-01-06] VITALS: BP 133/77
[2017-01-06 06:22] LABS: BASO # 0.1 10*3/uL (0.0-0.1); BASO % 0.8 % (0.0-1.0); EOS # 0.5 10*3/uL (0.0-0.4); EOS % 6.3 % (1.0-4.0); HEMOGLOBIN 10.6 g/dl (14.0-18.0); LYMPH # 1.6 10*3/uL (1.3-4.4); LYMPH % 18.8 % (27.0-41.0); MEAN CELL VOLUME 81.9 fl (80.0-94.0); MEAN CORPUSCULAR HGB 26.3 pg (27.0-31.0); MEAN CORPUSCULAR HGB CONC 32.1 g/dl (33.0-37.0); MEAN PLATELET VOLUME 10.3 fl (9.6-12.3); MONO # 1.3 10*3/uL (0.1-1.0); NEUT % 58.9 % (47.0-73.0); PLATELET COUNT AUTOMATED 293 10*3/uL (130-400); RED BLOOD COUNT 4.03 10*6/uL (4.50-5.90); RED CELL DISTRI WIDTH 15.7 % (0-14.5); WHITE BLOOD COUNT 8.5 10*3/uL (4.8-10.8)
[2017-01-06 08:00] VITALS: BP 96/49
[2017-01-06 12:00] VITALS: BP 116/58
[2017-01-06 16:00] VITALS: BP 117/71
[2017-01-06 20:00] VITALS: BP 97/69
[2017-01-07] VITALS: BP 100/60
[2017-01-07] MEDS ORDERED: OXYCODONE HCL5 MG PO (07:51)
[2017-01-07] MEDS ORDERED: ATARAX,VISTARIL10 MG PO (07:51)
[2017-01-07 08:00] VITALS: BP 138/84
[2017-01-07 12:00] VITALS: BP 117/69
[2017-01-07 16:00] VITALS: BP 124/54
[2017-01-07 20:00] VITALS: BP 134/86
[2017-01-08] VITALS: BP 114/71
[2017-01-08 08:00] VITALS: BP 94/50
== END 2017-01-08 09:40 | disposition other institution (70) | DRG 871 ==
LOC: ED 20:00 → EDHOLD 21:25 → 4E 21:25
PROVIDERS: Emergency Medicine; Internal Medicine
PROC: 0D9670Z Drainage of Stomach with Drainage Device, Via Natural or Artificial Opening (ICD-10-PCS; principal; 2017-01-03)
PROC: 0T9B30Z Drainage of Bladder with Drainage Device, Percutaneous Approach (ICD-10-PCS; principal; 2017-01-03)
DX: A41.9 Sepsis, unspecified organism (principal); G93.41 Metabolic encephalopathy; K56.60 Unspecified intestinal obstruction; E44.0 Moderate protein-calorie malnutrition; K92.2 Gastrointestinal hemorrhage, unspecified; N39.0 Urinary tract infection, site not specified; I50.9 Heart failure, unspecified; I13.0 Hypertensive heart and chronic kidney disease with heart failure and stage 1 through stage 4 chronic kidney disease, or unspecified chronic kidney disease; J44.9 Chronic obstructive pulmonary disease, unspecified; I48.91 Unspecified atrial fibrillation; R62.7 Adult failure to thrive; R29.6 Repeated falls; K29.00 Acute gastritis without bleeding; M47.896 Other spondylosis, lumbar region; N18.9 Chronic kidney disease, unspecified; G89.29 Other chronic pain; M79.662 Pain in left lower leg; M79.661 Pain in right lower leg; F41.9 Anxiety disorder, unspecified; B96.5 Pseudomonas (aeruginosa) (mallei) (pseudomallei) as the cause of diseases classified elsewhere; Z68.20 Body mass index [BMI] 20.0-20.9, adult; Z82.49 Family history of ischemic heart disease and other diseases of the circulatory system; Z83.3 Family history of diabetes mellitus

== ENCOUNTER 2017-02-09 16:11 | Emergency (ER) | payer OTHER ==
[~2017-02-09 16:11] MED LIST changes: +ATARAX,VISTARIL10 MG PO
[2017-02-09 16:29] VITALS: BP 109/54
[2017-02-09 16:59] LABS: BASO % 0.5 % (0.0-1.0); EOS # 0.3 10*3/uL (0.0-0.4); EOS % 3.7 % (1.0-4.0); HEMOGLOBIN 11.4 g/dl (14.0-18.0); LYMPH # 1.2 10*3/uL (1.3-4.4); LYMPH % 16.1 % (27.0-41.0); MEAN CELL VOLUME 85.5 fl (80.0-94.0); MEAN CORPUSCULAR HGB 27.1 pg (27.0-31.0); MEAN CORPUSCULAR HGB CONC 31.7 g/dl (33.0-37.0); MEAN PLATELET VOLUME 10.4 fl (9.6-12.3); MONO # 0.8 10*3/uL (0.1-1.0); MONO % 10.5 % (3.0-9.0); NEUT # 5.2 10*3/uL (2.3-7.9); NEUT % 68.8 % (47.0-73.0); PLATELET COUNT AUTOMATED 296 10*3/uL (130-400); RED BLOOD COUNT 4.21 10*6/uL (4.50-5.90); RED CELL DISTRI WIDTH 16.4 % (0-14.5); WHITE BLOOD COUNT 7.5 10*3/uL (4.8-10.8)
[2017-02-09 17:08] LABS: PROTHROMBIN TIME 10.6 SECONDS (9.0-12.4)
[2017-02-09 17:15] LABS: ALBUMIN 2.7 gm/dl (3.1-4.5); ALKALINE PHOSPHATASE 99 U/L (45-117); BILIRUBIN, TOTAL 0.5 mg/dl (0.2-1.0); BUN 10 mg/dl (7-24); C-REACTIVE PROTEIN 6.64 MG/DL (0-0.3); CARBON DIOXIDE 28 mmol/L (21-32); CHLORIDE 100 mmol/L (98-107); CKMB 2.2 ng/ml (0.5-3.6); CPK 104 U/L (39-308); EST GLOM FILT AFRICAN AMERICAN > 60 ml/min; GLUCOSE 106 mg/dL (65-99); MAGNESIUM 1.7 mg/dL (1.5-2.1); POTASSIUM 3.8 mmol/L (3.5-5.1); SGOT/AST 27 IU/L (3-35); SGPT/ALT 23 U/L (12-78); SODIUM 138 mmol/L (136-145)
[2017-02-09 17:16] LABS: TROPONIN I < 0.015 ng/ml (<0.045)
== END 2017-02-09 18:28 | disposition home or self-care (01) ==
LOC: ED 16:11
PROVIDERS: Emergency Medicine
DX: R13.10 Dysphagia, unspecified (principal); R06.02 Shortness of breath; J44.9 Chronic obstructive pulmonary disease, unspecified; I13.0 Hypertensive heart and chronic kidney disease with heart failure and stage 1 through stage 4 chronic kidney disease, or unspecified chronic kidney disease; I50.9 Heart failure, unspecified; N18.9 Chronic kidney disease, unspecified; G93.41 Metabolic encephalopathy; I48.91 Unspecified atrial fibrillation; Z79.899 Other long term (current) drug therapy

== ENCOUNTER 2017-04-03 22:39 | Inpatient (IN) | payer OTHER ==
[~2017-04-03] VITALS: Ht 187.9 cm; Wt 76.9 kg
--- NOTE | ~2017-04-03 | PR ---
[place], [place] PROGRESS NOTE NAME: BARBRA LAMB [facility] #: [id number] UNIT #: [id number] ROOM: 509 DOCTOR: LIBORIO ODOM MD BIRTHDATE: [birth year] DOS: SUBJECTIVE: The patient is awake and alert this morning in no respiratory distress. He feels good, does not have any complaints this morning. He is able to swallow his saliva. OBJECTIVE: VITAL SIGNS: Graphic trend shows a pressure of 130/67, pulse of 92, respirations 22, afebrile. LUNGS: Clear. HEART: Regular. ABDOMEN: Obese, soft. EXTREMITIES: Without any edema. Suprapubic catheter is working. ASSESSMENT AND PLAN: 1. Odynophagia with possibility of a foreign body in the esophagus, awaiting endoscopy this morning. 2. History of tracheostomy for cancer of larynx with good oxygenation. 3. Adult failure to thrive. The patient should be able to go back home once we have the endoscopy performed. LIBORIO ODOM MD CM:PNTRANS [id number] LIBORIO ODOM MD 04/06/17 0022 interface
--- NOTE | ~2017-04-03 | WRIGHTHP ---
[place], [place] PATIENT HISTORY AND PHYSICAL EXAM NAME: BARBRA LAMB [facility] #: [id number] UNIT #: [id number] ROOM: 509 DOCTOR: LIBORIO ODOM MD BIRTHDATE: [birth year] DOS: 04/04/2017 HISTORY OF PRESENT ILLNESS: The patient is very well known to us, was brought in by family members this morning saying that he had some foreign body stuck in his throat. He has had a PEG tube placement since last December. This was removed recently and apparently was eating ribs at home yesterday and could not swallow and started coughing and so was brought to the Emergency Room. He is unable to swallow anything at all this morning, does not have any complaints today of chest pains or palpitations. PAST MEDICAL HISTORY: Significant for: 1. History of suprapubic catheter placement. 2. History of PEG tube placement, which has since been removed. 3. Chronic kidney disease stage 3. 4. COPD. 5. History of CA larynx, status post laryngectomy, tracheostomy. 6. Benign hypertension. MEDICATIONS: The patient is currently on Xanax 0.5 twice a day, cyclobenzaprine 5 t.i.d., Lasix 20 daily, levothyroxine 0.05 mg daily, lisinopril 2.5 daily, Pamelor 10 daily, omeprazole 20 daily, Paxil 20 daily, potassium 10 daily, Pravachol 20 daily. SOCIAL HISTORY: Nonsmoker, does not use any alcohol. PHYSICAL EXAMINATION: GENERAL: He is awake and alert, does try to communicate. He does not appear to be in any distress. VITAL SIGNS: Blood pressure is 107/63, pulse of 75, respirations 15, temperature 98.7. LUNGS: Diminished breath sounds. Few scattered wheezes heard, which is chronic. HEART: Regular. ABDOMEN: Soft, scaphoid. Suprapubic catheter is still present. EXTREMITIES: Without any edema. IMAGING STUDIES: X-ray of the neck does not show any abnormalities other than some soft tissue prominence in the vocal cord area. Chest x-ray shows no pulmonary disease, COPD changes seen. LABORATORY DATA: WBC count is normal at 8.6, hemoglobin 10.4, platelets 258. BMP: Glucose 81, BUN 8, creatinine 0.81. Electrolytes were normal. ASSESSMENT AND PLAN: 1. A 76-year-old who comes in with complaints of difficulty swallowing. He had eaten some ribs yesterday. It is possible that he has a foreign body. No radiopaque foreign body was seen on the soft tissue on the neck, but will ask Dr. Salcedo for a consultation, endoscopy will be scheduled for tomorrow. Right now, the patient remains n.p.o. with IV fluids. 2. Adult failure to thrive. He apparently was eating better after the PEG tube [place], [place] PATIENT HISTORY AND PHYSICAL EXAM NAME: BARBRA LAMB UNIT #: [id number] ROOM: [facility] DOCTOR: LIBORIO ODOM MD BIRTHDATE: [birth year] was removed. We will see whether he has esophageal stricture or some other reason for him not to swallow. We will decide on further of PEG tube placement once we have the endoscopic results. 2. Benign hypertension, controlled. 3. Adult failure to thrive. The patient was on hospice care at home. We will ask Social Service consultation. LIBORIO ODOM MD CM:HISPHYS:PATIENT HISTORY AND PHYSICAL EXAMINATION [phone] LIBORIO ODOM MD 04/04/17 1400 interface
--- NOTE | ~2017-04-03 | PR ---
[place], [place] PROGRESS NOTE NAME: BARBRA LAMB [facility] #: [id number] UNIT #: [id number] ROOM: 509 DOCTOR: LIBORIO ODOM MD BIRTHDATE: [birth year] DOS: SUBJECTIVE: The patient is about the same, does not have any new complaints. OBJECTIVE: VITAL SIGNS: Graphic trend shows pressure 139/71, pulse of 95, respirations 20, temperature 97.7. LUNGS: Diminished breath sounds, a few rhonchi which is chronic. HEART: Regular. ABDOMEN: Soft, scaphoid. EXTREMITIES: Without any edema. LABORATORY DATA: This morning shows glucose of 87, BUN 5, creatinine 0.64, sodium 137, potassium 3.4, chloride 103, bicarbonate 28. WBC count is 9.1, hemoglobin 11.0, hematocrit 35.1, platelets 253. ASSESSMENT AND PLAN: 1. Possible foreign body on admission. This has been ruled out with a negative endoscopy. 2. Esophageal stricture, status post dilation. The patient is on a soft diet. 3. Adult failure to thrive. He is on hospice care. The plan is to discharge him back to home today. LIBORIO ODOM MD CM:PNTRANS [phone] LIBORIO ODOM MD 04/07/17900 interface
--- NOTE | ~2017-04-03 | DS ---
[place], [place] DISCHARGE SUMMARY NAME: BARBRA LAMB [facility] #: [id number] UNIT #: [id number] ROOM: 509 DOCTOR: LIBORIO ODOM MD BIRTHDATE: [birth year] DOS: 04/07/2017 DIAGNOSES: 1. Foreign body after eating ribs. 2. Odynophagia status post esophageal dilation on an endoscopy. 3. Chronic obstructive pulmonary disease, end-stage, oxygen dependent. 4. History of carcinoma of larynx, status post laryngectomy, tracheostomy. 5. Benign hypertension. 6. Adult failure to thrive. The patient is currently on hospice care. 7. Hypokalemia. MEDICATIONS ON DISCHARGE: Will be Paxil 20, lisinopril 2.5, levothyroxine 0.05, omeprazole 20, Pravachol 20, Xanax 0.5 b.i.d., Lasix 20, potassium 10, cyclobenzaprine 5 t.i.d., Pamelor 25 at bedtime. HOSPITAL COURSE: The patient is 76 years old, very well known to us, had a PEG tube, which was removed recently and he was eating regular food and on the day of admission, he decided to eat some ribs and developed sudden onset of difficulty breathing and a possibility that he was choking on a foreign body was raised, so he was sent to the emergency room from home. He was evaluated in the ER, CT of the neck did not show any abnormalities, but he was admitted. After admission, the patient was given IV fluids, kept n.p.o. Dr. Salcedo was consulted. Endoscopy was performed. Esophageal stricture was noted and dilation was performed. The patient after that was placed on a soft diet and he apparently is tolerating it and is not choking on food. The plan therefore is to discharge him to home today. The patient is on hospice care. We will continue that at home. DISCHARGE MEDICATIONS: As above. LIBORIO ODOM MD CM:DISCHARG [phone] LIBORIO ODOM MD 04/07/17 1358 interface
--- NOTE | ~2017-04-03 | PR ---
[place], [place] PROGRESS NOTE NAME: BARBRA LAMB [facility] #: [id number] UNIT #: [id number] ROOM: 509 DOCTOR: LIBORIO ODOM MD BIRTHDATE: [birth year] DOS: SUBJECTIVE: The patient underwent the endoscopy yesterday. Esophageal dilatation was performed for a stricture. This morning, he does not have any complaints. OBJECTIVE: VITAL SIGNS: Blood pressure is 138/88, pulse of 87, respirations 20 and temperature 98.6. LUNGS: Clear. HEART: Regular. ABDOMEN: Soft, scaphoid. EXTREMITIES: Without any edema. Suprapubic in place. ASSESSMENT AND PLAN: The patient who admitted with foreign body, no foreign body was seen on endoscopy. Esophageal stricture was noted and dilatation was performed. The patient will be started on a regular diet today and restart some of his home meds that have been on hold because of his n.p.o. status. If the patient is able to eat well, the plan is to discharge him to home tomorrow. LIBORIO ODOM MD CM:PNTRANS [phone] LIBORIO ODOM MD 04/07/17 0057 interface
--- NOTE | ~2017-04-03 | O ---
[place], [place] OPERATIVE NOTE NAME: BARBRA LAMB UNIT #: [id number] ROOM: 509 DOCTOR: CHARLI DICKEYJAVI BIRTHDATE: [birth year] DOS: GASTROENDOSCOPIC REPORT. INDICATIONS: The patient has presented with laryngeal carcinoma status post laryngectomy and tracheostomy, status post previous PEG. The PEG has been pulled out. The patient is coming with dysphagia, suspected soft tissue edema versus foreign body esophagus. I have been asked for evaluation of the esophagus for esophageal foreign body. His H and H has been 10 and 33. PAST MEDICAL HISTORY: Associated CHF, abdominal pain, coffee ground emesis, COPD, history of atrial fibrillation, metabolic encephalopathy history in the past. PAST SURGICAL HISTORY: Laryngectomy, tracheostomy. SOCIAL HISTORY: Smoker, nonalcohol consumer. FAMILY HISTORY: Noncontributory. ALLERGIES: No known medication. MEDICATIONS: List has been reviewed. PROCEDURE: Today's procedure part of investigation is panendoscopy and balloon dilation of above upper esophageal stricture. PREMEDICATION: Versed and Diprivan. SCOPE: Olympus forward-viewing gastroscope Q10 video. REPORT: After putting the patient in the left lateral position and after application of lubricant to the scope, the scope was introduced; thereafter, under direct visualization, advanced through the length of esophagus without difficulty. At the cervical esophagus, there was high-grade stricture. Gastric pouch was entered. Evidence of atrophic gastritis was seen. Duodenal bulb, second and third part within normal limits. The patient was gradually extubated to proximal stomach and a balloon size 15 mm was introduced into the gastric pouch fully insufflated and gradually and orally withdrawn. Highest resistance in upper esophagus at the pharyngeal-esophageal junction was experienced and the patient dilated to that size in the gastric pouch. Evidence of previous PEG also had been noticed. However, the device is out and the ostomy site is healed. IMPRESSION: Upper esophageal stricture, status post balloon dilation, status post laryngectomy, atrophic gastritis and previous ulceration of the PEG ostomy site was noticed. PLAN AND DISCUSSION: As I have previously noticed, patient also has thrush of the oral cavity, we are going to start him on Nystatin 5 mL q.i.d. for [place], [place] OPERATIVE NOTE NAME: BARBRA LAMB UNIT #: [id number] ROOM: [facility] DOCTOR: CHARLI DICKEY,JAVI BIRTHDATE: [birth year] swish and swallow and also, we are going to make sure that he remains on PPI or H2 kelvin in addition. He has been on cyclobenzaprine and he has been on Atarax as well. He is going to continue with his other medications. Diet, soft as tolerated and we are going to continue with omeprazole 20 mg daily. I believe this patient would have benefited from having a PEG tube in to catch up with his protein calorie malnutrition; however, this has not been consented to. JAVI AUGUSTIN MD CM:OPRLORETTAORD:OPERATIVE NOTE [phone] AJVI AUGUSTIN MD 04/05/17 1444 interface
[2017-04-03 22:39] VITALS: BP 96/51
[2017-04-03] MEDS ORDERED: 'XANAX0.5 MG PO (23:41)
[2017-04-03] MEDS ORDERED: LASIX20 MG PO (23:42)
[2017-04-03] MEDS ORDERED: KLOR-CON SPRIN10 MEQ PO (23:44)
[2017-04-03 23:49] VITALS: BP 92/47
[2017-04-04] VITALS (7 sets, daily range): BP systolic 89–135; BP diastolic 49–89
[2017-04-04 00:41] LABS: BASO # 0.1 10*3/uL (0.0-0.1); EOS # 0.7 10*3/uL (0.0-0.4); EOS % 8.3 % (1.0-4.0); HEMOGLOBIN 10.4 g/dl (14.0-18.0); LYMPH # 1.8 10*3/uL (1.3-4.4); LYMPH % 20.5 % (27.0-41.0); MEAN CELL VOLUME 86.8 fl (80.0-94.0); MEAN CORPUSCULAR HGB 27.4 pg (27.0-31.0); MEAN CORPUSCULAR HGB CONC 31.5 g/dl (33.0-37.0); MONO # 0.9 10*3/uL (0.1-1.0); MONO % 10.9 % (3.0-9.0); NEUT # 5.1 10*3/uL (2.3-7.9); PLATELET COUNT AUTOMATED 258 10*3/uL (130-400); WHITE BLOOD COUNT 8.6 10*3/uL (4.8-10.8)
[2017-04-04 00:51] LABS: ACT PARTIAL THROMBO TIME 29.1 SECONDS (20.8-31.5)
[2017-04-04 00:54] LABS: BUN 8 mg/dl (7-24); CHLORIDE 104 mmol/L (98-107); CREATININE 0.81 mg/dL (0.70-1.30); POTASSIUM 4.3 mmol/L (3.5-5.1); SODIUM 138 mmol/L (136-145)
--- NOTE | 2017-04-04 01:25 | NUR ---
A 76, admitted to 5E, under the services of LIBORIO Bolom MD with a diagnosis of Impacted Esophageal Foreign Body. Chief complaint is Foreign Body in the Throat. Patient arrived via stretcher from ER. Monitor applied. Initial assessment completed. Vital signs taken and recorded. LIBORIO BLOOM MD notified of admission to the unit. Orders received. See assessment for past medical history, medications and allergies. Patient and/or family oriented to unit. [address], Med Rec completed, Dr. Montague notified of patients arrival. She will place orders in the morning. visitation policy reviewed. Clothing/patient valuable form completed. ANDREW DURBIN
[2017-04-04] MEDS ORDERED: CYCLOBENZAPRINE5 M3 PO (01:27)
--- NOTE | 2017-04-04 01:29 | NUR ---
MEDICATION'S REVIEWED WITH PHARMACY LIST PROVIDED BY [facility]. UPDATED MEDREC.
[2017-04-04] MEDS ORDERED: PAMELOR10 M1 PO (01:52)
--- NOTE | 2017-04-04 02:07 | NUR ---
Dr. Parra notified regarding patients leg spasms. See new orders.
--- NOTE | 2017-04-04 06:44 | NUR ---
MESSAGE WAS LEFT WITH DR. AUGUSTIN REGARDING CONSULT.
--- NOTE | 2017-04-04 08:29 | NUR ---
SPOKE WITH DR AUGUSTIN REGARDING CONSULT . NEW ORDER FOR EGD CORAL ( SatAPR 05)
--- NOTE | 2017-04-04 10:50 | NUR ---
technical planner discussed discharge plans with patient son, Kevin. He stated patient is all set up at home and is currently under the services of Hospice, he thinks its community hospice. Patient has everything at home: Hospital bed, BSC, shower chair, jf lift. He will be returning home once he is discharged.
--- NOTE | 2017-04-04 12:00 | NUR ---
WOUND PHOTOS TAKEN
--- NOTE | 2017-04-04 16:17 | NUR ---
PT RESTING IN BED., NO DISTRESS NOTED; WILL MONITOR
--- NOTE | 2017-04-04 18:57 | NUR ---
PT MEDICATED WITH DILAUDID FOR C/O LE PAIN, PT UNABLE TO RATE PAIN. WILL MONITOR. CALL LIGHT WITHIN REACH
[2017-04-05] VITALS (9 sets, daily range): BP systolic 72–130; BP diastolic 44–70
--- NOTE | 2017-04-05 04:43 | NUR ---
[facility]. REFER TO PAPER MAR AND WRITTEN PROGRESS NOTES.
--- NOTE | 2017-04-05 09:31 | NUR ---
PATIENT OFF THE FLOOR AT THIS TIME FOR EGD WITH LOUISI.
--- NOTE | 2017-04-05 12:15 | NUR ---
PATIENT RETURNED TO FLOOR AT THIS TIME ACCOMPANIED BY FAMILY
--- NOTE | 2017-04-05 12:21 | NUR ---
PATIENT MEDICATED WITH PRN DILAUDID FOR SXS OF PAIN AND DISCOMFORT. PATIENT IN ROOM WITH FAMILY AT THIS TIME. CALL LIGHT IN REACH. WILL MONITOR.
--- NOTE | 2017-04-05 13:30 | NUR ---
DRESSINGS DONE PER WOUND CARE ORDERS.
--- NOTE | 2017-04-05 13:30 | NUR ---
DILAUDID FROM EARLIER APPEARS EFFECTIVE. PATIENT RESTING IN BED WITH FEWER SXS OF DISTRESS AND DISCOMFORT. CALL LIGHT IN REACH. WILL MONITOR.
--- NOTE | 2017-04-05 17:57 | NUR ---
PATIENT RESTING IN BED. NO SXS OF DISTRESS. WHEN ASKED IF HE IS IN PAIN HE DENIES. PATIENT SAYS HE IS COMFORTABLE. PLEASANT/COOPERATIVE THROUGHOUT SHIFT. HE HAS A STOMA BUT NO SPEAKING DEVICE AT THIS TIME. HE IS ALERT AND ORIENTED AND ABLE TO RESPOND TO QUESTIONS BUT THEY ARE NOT AUDIBLE. CALL LIGHT IS IN REACH. FLUIDS MAINTAINED ORDERED. WILL MONITOR.
--- NOTE | 2017-04-05 22:27 | NUR ---
SPOKE WITH THE PATIENTS SON AND TOLD HIM OF HIS FATHERS AGITATION AND DESIRE TO LEAVE THE HOSPITAL. THE SON STATED THAT DR. ODOM SAID HE SHOULD BE DC TOMORROW. NO OTHER CONCERNS AT THIS TIME.
[2017-04-06] VITALS: BP 138/88
[2017-04-06 08:00] VITALS: BP 142/83
--- NOTE | 2017-04-06 09:41 | NUR ---
BARBRA LAMB [facility] [id number] Please refer to the physician's history and physical for past medical history, comorbid conditions, and allergies. Diagnosis: IMPACTED ESOPHAGEAL FOREIGN BODY Keny Score: 11,HIGH RISK WOUND DESCRIPTIONS: Location of the wound: left coccyx Type of wound: stage III Thickness: Full Size: 0.5cm x 0.5cm x 0.1cm Tunneling: none Undermining: none Sinus Tract: none Presence of Exudate: Sanguineous Amount: Light Color: Red Odor: None Periwound Skin Appearance: Normal Wound edges: approximated Pain (associated with wound): Patient denies pain at time of assessment How does patient state this happened? Patient is unsure of how this happened Location of the wound: Medial coccyx Type of wound: Stage II Thickness: Partial Size: 0.2cm x 0.2cm x 0.1cm Tunneling: none Undermining: none Sinus Tract: none Presence of Exudate: Serous Amount: Light Color: Kindred Odor: None Periwound Skin Appearance: Normal Wound edges: approximated Pain (associated with wound): Patient denies pain at time of assessment How does patient state this happened? Patient unsure how this happened Location of the wound: left elbow Type of wound: Thickness: Full Size: 0.2cm x 0.2cm x 0.1cm Tunneling: none Undermining: none Sinus Tract: none Presence of Exudate: Amount: Color: Red Odor: None Periwound Skin Appearance: Normal Wound edges: approximated Pain (associated with wound): Patient denies pain How does patient state this happened? Patient unsure how this happened Surface the patient is resting on: Isoflex SKIN PREVENTION RECOMMENDATION: 1. Pressure redistribution support surface as appropriate 2. Elevate heels 3. Remove boots/TEDS every shift and reapply 4. Head of bed 30 degrees as tolerated 5. Assess nutrition and hydration 6. Manage moisture 7. Avoid the use of containment devices while in bed 8. Use absorptive products on surfaces limit layers of linens on bed 9. Turn and reposition every 1-2 hours in bed and every 1 hour in chair as tolerated 10. Weight shifts every 15 minutes while up in chair 11. Offloading with pillows or device to keep heels elevated off bed 12. Monitor skin at least every shift 13. Inspect under medical devices twice a day WOUND TREATMENT RECOMMENDATIONS: Continue current wound care orders
[2017-04-06 12:31] VITALS: BP 122/64; BP 138/86
[2017-04-06 16:00] VITALS: BP 123/64
[2017-04-06 20:00] VITALS: BP 90/35
[2017-04-07] VITALS: BP 122/57
[2017-04-07 06:03] LABS: BASO # 0.1 10*3/uL (0.0-0.1); BASO % 1.1 % (0.0-1.0); EOS # 0.9 10*3/uL (0.0-0.4); EOS % 10.4 % (1.0-4.0); HEMATOCRIT 35.1 % (42.0-52.0); LYMPH # 2.2 10*3/uL (1.3-4.4); MEAN CELL VOLUME 85.6 fl (80.0-94.0); MEAN CORPUSCULAR HGB 26.8 pg (27.0-31.0); MEAN CORPUSCULAR HGB CONC 31.3 g/dl (33.0-37.0); MEAN PLATELET VOLUME 11.4 fl (9.6-12.3); MONO % 11.1 % (3.0-9.0); NEUT # 4.8 10*3/uL (2.3-7.9); NEUT % 53.2 % (47.0-73.0); PLATELET COUNT AUTOMATED 253 10*3/uL (130-400); RED CELL DISTRI WIDTH 15.8 % (0-14.5); WHITE BLOOD COUNT 9.1 10*3/uL (4.8-10.8)
[2017-04-07 06:08] LABS: BUN 5 mg/dl (7-24); CHLORIDE 103 mmol/L (98-107); CREATININE 0.64 mg/dL (0.70-1.30); POTASSIUM 3.4 mmol/L (3.5-5.1); SODIUM 137 mmol/L (136-145)
[2017-04-07 07:40] VITALS: BP 139/71
--- NOTE | 2017-04-07 08:17 | NUR ---
DR ODOM IN TO SEE PT. SEE SHIFT ASSESSMENT.
--- NOTE | 2017-04-07 08:46 | NUR ---
MEDICATED IV SLOWLY ORDERED PER PT REQUEST WITH DILAUDID FOR C/O PAIN. SEE EMAR. PT UNABLE TO RATE PAIN AT THIS TIME.
--- NOTE | 2017-04-07 10:39 | NUR ---
MEDICATION EFFECTIVE, PT SLEEPING WITH EASY RESPIRATIONS.
--- NOTE | 2017-04-07 15:36 | NUR ---
CALLED PTS SON TO INFORM CON THAT AMBULANCE SERVICE IN RUNNING LATE.
[2017-04-07 16:00] VITALS: BP 145/66
--- NOTE | 2017-04-07 17:23 | NUR ---
DISCHARGED VIA AMBULANCE TO HOME. Discharge instructions reviewed with family, receptive and verbalizes understanding. Written instructions given to patient/family. JOHANN JENKINS
== END 2017-04-07 17:23 | disposition hospice, home (50) | DRG 392 ==
LOC: ED 22:39 → 5E 04-04 00:40 → EDHOLD 04-04 00:40 → 5E 04-04 00:50
PROVIDERS: Emergency Medicine Emergency Medical Services; ADMIT Internal Medicine
PROC: 0D718ZZ Dilation of Upper Esophagus, Via Natural or Artificial Opening Endoscopic (ICD-10-PCS; principal; 2017-04-04)
DX: K22.2 Esophageal obstruction (principal); I48.91 Unspecified atrial fibrillation; Z93.0 Tracheostomy status; R13.10 Dysphagia, unspecified; J44.9 Chronic obstructive pulmonary disease, unspecified; I13.0 Hypertensive heart and chronic kidney disease with heart failure and stage 1 through stage 4 chronic kidney disease, or unspecified chronic kidney disease; I50.9 Heart failure, unspecified; R62.7 Adult failure to thrive; E87.6 Hypokalemia; N18.3 Chronic kidney disease, stage 3 (moderate); Z90.02 Acquired absence of larynx; Z91.81 History of falling; Z87.440 Personal history of urinary (tract) infections; Z85.21 Personal history of malignant neoplasm of larynx; Z83.3 Family history of diabetes mellitus; Z82.49 Family history of ischemic heart disease and other diseases of the circulatory system; Z51.5 Encounter for palliative care; Z66 Do not resuscitate

== ENCOUNTER 2017-05-01 14:12 | Emergency (ER) | payer OTHER ==
[~2017-05-01] VITALS: Wt 104.3 kg
[~2017-05-01 14:12] MED LIST changes: +KLOR-CON SPRIN10 MEQ PO; +PAMELOR10 M1 PO
[2017-05-01 14:18] VITALS: BP 133/73
[2017-05-01 15:43] LABS: BASO # 0.1 10*3/uL (0.0-0.1); BASO % 0.8 % (0.0-1.0); EOS # 0.6 10*3/uL (0.0-0.4); EOS % 6.1 % (1.0-4.0); HEMATOCRIT 32.2 % (42.0-52.0); HEMOGLOBIN 10.4 g/dl (14.0-18.0); LYMPH # 1.4 10*3/uL (1.3-4.4); LYMPH % 14.9 % (27.0-41.0); MEAN CELL VOLUME 85.2 fl (80.0-94.0); MEAN CORPUSCULAR HGB 27.5 pg (27.0-31.0); MEAN CORPUSCULAR HGB CONC 32.3 g/dl (33.0-37.0); MEAN PLATELET VOLUME 9.9 fl (9.6-12.3); MONO # 1.1 10*3/uL (0.1-1.0); MONO % 11.1 % (3.0-9.0); NEUT # 6.4 10*3/uL (2.3-7.9); NEUT % 66.8 % (47.0-73.0); PLATELET COUNT AUTOMATED 279 10*3/uL (130-400); RED BLOOD COUNT 3.78 10*6/uL (4.50-5.90); RED CELL DISTRI WIDTH 15.9 % (0-14.5); WHITE BLOOD COUNT 9.5 10*3/uL (4.8-10.8)
[2017-05-01 16:26] LABS: ALBUMIN 2.7 gm/dl (3.1-4.5); ALKALINE PHOSPHATASE 95 U/L (45-117); BUN 9 mg/dl (7-24); CHLORIDE 105 mmol/L (98-107); CREATININE 0.68 mg/dL (0.70-1.30); POTASSIUM 4.8 mmol/L (3.5-5.1); SGOT/AST 17 IU/L (3-35); SGPT/ALT 12 U/L (12-78); SODIUM 138 mmol/L (136-145); TOTAL PROTEIN 6.6 gm/dL (6.4-8.2)
== END 2017-05-01 19:38 | disposition home or self-care (01) ==
LOC: ED 14:12
PROVIDERS: Physician Assistant
DX: R13.10 Dysphagia, unspecified (principal); R09.3 Abnormal sputum; Z98.890 Other specified postprocedural states; Z90.89 Acquired absence of other organs; Z79.899 Other long term (current) drug therapy; Z93.0 Tracheostomy status

== ENCOUNTER 2017-07-10 18:31 | Emergency (ER) | payer OTHER ==
[~2017-07-10] VITALS: Ht 187.9 cm; Wt 104.3 kg
[2017-07-10 18:54] VITALS: BP 120/60
== END 2017-07-10 22:12 | disposition home or self-care (01) ==
LOC: ED 18:31
DX: N50.82 Scrotal pain (principal); N50.819 Testicular pain, unspecified; I50.9 Heart failure, unspecified; I12.9 Hypertensive chronic kidney disease with stage 1 through stage 4 chronic kidney disease, or unspecified chronic kidney disease; N18.9 Chronic kidney disease, unspecified; J44.9 Chronic obstructive pulmonary disease, unspecified; I48.91 Unspecified atrial fibrillation; J39.8 Other specified diseases of upper respiratory tract; Z79.899 Other long term (current) drug therapy

== ENCOUNTER 2017-08-26 05:56 | Inpatient (IN) | payer OTHER ==
[2017-08-26] VITALS (8 sets, daily range): BP systolic 120–150; BP diastolic 57–77
[~2017-08-26] VITALS: Ht 180.3 cm; Wt 84.1 kg
--- NOTE | ~2017-08-26 | PR ---
[place], [place] PROGRESS NOTE NAME: [facility] #: [id number] UNIT #: [id number] ROOM: 502 DOCTOR: LIBORIO ODOM MD BIRTHDATE: [birth year] DOS: SUBJECTIVE: The patient is in bed. He does not have any more emesis, but he appears to be in a lot of pain. OBJECTIVE: VITAL SIGNS: Graphic trend shows blood pressure 140/64, pulse of 77, respirations 20, temperature 98.8. LUNGS: Diminished breath sounds, scattered rhonchi bilaterally. HEART: Regular. ABDOMEN: Obese. EXTREMITIES: Without any edema and contracted bilaterally. ASSESSMENT AND PLAN: 1. A patient who presents with coffee-ground emesis, which has resolved. The patient is on IV Protonix and fluids, start him back on a diet today. 2. Chronic pain with history of multiple laminectomies and cervical spine stenosis. We will increase the morphine. 3. Adult failure to thrive, hospice care. I am hoping to discharge him back to the detention soon. LIBORIO ODOM MD CM:PNTRANS [id number] LIBORIO ODOM MD 08/27/17 0857 interface
--- NOTE | ~2017-08-26 | DS ---
[place], [place] DISCHARGE SUMMARY NAME: [facility] #: [id number] UNIT #: [id number] ROOM: 502 DOCTOR: LIBORIO ODOM MD BIRTHDATE: [birth year] DOS: 08/28/2017 HOSPITAL COURSE: The patient is very well known to us. He was admitted to the hospital on August 26, discharged on August 28. The patient was admitted with coffee-ground emesis, came into the Emergency Room with multiple bouts of emesis at home. He is currently on hospice care. Family did not want to take him home, so he was admitted. After admission, he was placed on IV fluids. NG-tube was inserted, but the patient kept pulling it out. About 300 mL of coffee-ground emesis was suctioned out. He was placed on IV Protonix. His nausea and emesis subsided. He has not had any hematemesis in the last 24 hours. His H and H have dropped slightly, but part of the problem is the dilutional. He is much better. Clinically, he does not have any complaints. His pain is under control. He is no longer nauseous or having any abdominal pain and his appetite is fair and is eating well. His urine culture did show gram-positive cocci. I do not have an identification yet, but he has been on Rocephin, will be switched to p.o. Ceftin. The patient will be discharged to home today with hospice care. He lives with his son. Arrangements are being made for discharge. DISCHARGE DIAGNOSES: 1. Hematemesis, possibly from acute gastritis. 2. Urinary tract infection with gram-positive cocci, no identification available. 3. Adult failure to thrive, on hospice care. 4. Chronic obstructive pulmonary disease. 5. History of cancer of larynx and laryngectomy. 6. Chronic back pain. DISCHARGE MEDICATIONS: Ceftin 250 twice a day for 5 days, Carafate 1 gram t.i.d. for a month, lisinopril 2.5 daily, levothyroxine 50 mcg daily, omeprazole 20 daily, Pravachol 20 daily, Xanax 0.5 b.i.d. p.r.n., Lasix 20 daily, potassium 10 daily, Flexeril 5 t.i.d., nortriptyline 25 daily, rivastigmine 4.6 patch daily, Paxil 40 daily, dexamethasone 2 mg daily. [place], [place] DISCHARGE SUMMARY [facility] [id number] UNIT #: [id number] ROOM: [facility] DOCTOR: LIBORIO ODOM MD BIRTHDATE: [birth year] LIBORIO ODOM MD CM:ANAYA 3 LIBORIO ODOM MD 08/28/17913 interface
--- NOTE | ~2017-08-26 | PR ---
[place], [place] PROGRESS NOTE NAME: [facility] #: [id number] UNIT #: [id number] ROOM: 502 DOCTOR: LIBORIO ODOM MD BIRTHDATE: [birth year] DOS: SUBJECTIVE: The patient has had no more emesis. He is much more awake and alert and oriented, states that he is comfortable. He does not have any complaints of chest pains or palpitations, had some eggs for breakfast. OBJECTIVE: VITAL SIGNS: Blood pressure 136/72, pulse of 79, respirations 18, temperature 97.8. LUNGS: Diminished breath sounds, clear. HEART: Regular. ABDOMEN: Soft. EXTREMITIES: Without any edema, contractures. LABORATORY DATA: Urine culture shows heavy gram-positive cocci. White cell count is 11.7, hemoglobin 9.5. ASSESSMENT AND PLAN: 1. Coffee ground emesis, possibly from acute gastritis and GI bleed, which seems to have corrected, NG tube has been removed. 2. History of multiple endoscopies, the last one was in 2017. Again had multiple ulcers and he is on proton pump inhibitors, which will be continued. 3. Adult failure to thrive on hospice care. The plan is to discharge him back to home on hospice. 4. Urinary tract infection with gram-positive, right now Ceftin has been ordered and do not have any identification yet. LIBORIO DOOM MD CM:PNTRANS [id number] LIBORIO ODOM MD 08/28/17 0926 interface
--- NOTE | ~2017-08-26 | WRIGHTHP ---
[place], [place] PATIENT HISTORY AND PHYSICAL EXAM NAME: [facility] #: [id number] UNIT #: [id number] ROOM: 502 DOCTOR: LIBORIO ODOM MD BIRTHDATE: [birth year] DOS: 08/26/2017 HISTORY OF PRESENT ILLNESS: The patient was seen in the emergency room on 08/26/2017. The patient is very well known to us as a hospice patient who was brought in by family members because he woke up in the middle of the night complained of abdominal pain and he started throwing up brownish material. The patient was seen in the emergency room while I was examining him, had continued to throw up coffee ground emesis. He did not have any complaints of chest pains or palpitations, does not have any fever or chills. PAST MEDICAL HISTORY: Significant for: 1. Hospice. 2. Adult failure to thrive. 3. End-stage COPD. 4. History of tracheostomy for history of CA larynx. 5. History of multiple duodenal ulcers and esophageal ulcers with multiple endoscopies. 6. History of suprapubic catheter placement. 7. History of chronic back pain. MEDICATIONS: Cyclobenzaprine, Xanax, dexamethasone, Lasix, levothyroxine, lisinopril, Pamelor, omeprazole, Paxil, potassium, pravastatin, rivastigmine. SOCIAL HISTORY: Nonsmoker, right now, but he was a heavy smoker years ago. Denies using any alcohol. PHYSICAL EXAMINATION: GENERAL: He is awake and alert and oriented. Again, continues to throw up dark brown blood. VITAL SIGNS: Shows pressure 142/70, pulse of 86, respirations 14, afebrile. LUNGS: Scattered rhonchi heard. HEART: Regular. ABDOMEN: Soft, scaphoid, nontender. EXTREMITIES: Contracted. ASSESSMENT AND PLAN: 1. The patient with most likely acute gastritis with resultant coffee ground emesis. The patient is a hospice care and I would not proceed with any further testing, but I have asked Dr. Salcedo for an opinion. He has had numerous endoscopies in the past. Right now, I will keep him on IV fluids and IV Protonix. The patient's condition was discussed with the son. IV morphine and IV Ativan also to be ordered for pain control along with a social service consult. 2. Chronic obstructive pulmonary disease without any exacerbation with chest x-ray showing no evidence of any pneumonia. 3. Chronic pain syndrome, right now he is n.p.o. and we will continue home meds at a later date. [place], [place] PATIENT HISTORY AND PHYSICAL EXAM NAME: BARBRA LAMB UNIT #: [id number] ROOM: [facility] DOCTOR: LIBORIO ODOM MD BIRTHDATE: [birth year] LIBORIO ODOM MD CM:HISPHYS:PATIENT HISTORY AND PHYSICAL EXAMINATION 9 5 LIBORIO ODOM MD 08/27/17945 interface
[2017-08-26] MEDS ORDERED: RIVASTIGMINE1 EACH T (06:15)
[2017-08-26 06:36] LABS: HEMATOCRIT 41.4 % (42.0-52.0); HEMOGLOBIN 12.6 g/dl (14.0-18.0); MEAN CORPUSCULAR HGB CONC 30.4 g/dl (33.0-37.0); MEAN PLATELET VOLUME 10.5 fl (9.6-12.3); PLATELET COUNT AUTOMATED 427 10*3/uL (130-400); RED BLOOD COUNT 5.05 10*6/uL (4.50-5.90); RED CELL DISTRI WIDTH 16.6 % (0-14.5); WHITE BLOOD COUNT 19.1 10*3/uL (4.8-10.8)
[2017-08-26 06:46] LABS: ACT PARTIAL THROMBO TIME 24.5 SECONDS (20.8-31.5); INTERNATIONAL NORM RATIO 0.9 (2.0-3.5)
[2017-08-26 06:57] LABS: TOTAL CELLS COUNTED 100 #CELLS
[2017-08-26 06:58] LABS: ACANTHOCYTES FEW; PLATELET SUFFICIENCY HIGH (NORMAL)
[2017-08-26 07:00] LABS: ALBUMIN 3.7 gm/dl (3.1-4.5); ALKALINE PHOSPHATASE 95 U/L (45-117); BUN 22 mg/dl (7-24); CHLORIDE 100 mmol/L (98-107); CREATININE 1.18 mg/dL (0.70-1.30); POTASSIUM 4.6 mmol/L (3.5-5.1); SGOT/AST 19 IU/L (3-35); SGPT/ALT 23 U/L (12-78); SODIUM 138 mmol/L (136-145); TOTAL PROTEIN 8.6 gm/dL (6.4-8.2)
[2017-08-26 07:11] LABS: TROPONIN I < 0.015 ng/ml (<0.045)
[2017-08-26] MEDS ORDERED: PAXIL40 M1 PO (15:47)
[2017-08-26] MEDS ORDERED: DEXAMETHASONE2 MG PO (15:49)
[2017-08-27] VITALS: BP 140/64
[2017-08-27 07:01] LABS: MEAN CELL VOLUME 82.7 fl (80.0-94.0); MEAN CORPUSCULAR HGB 25.9 pg (27.0-31.0); MEAN CORPUSCULAR HGB CONC 31.3 g/dl (33.0-37.0); MEAN PLATELET VOLUME 10.4 fl (9.6-12.3); PLATELET COUNT AUTOMATED 327 10*3/uL (130-400); RED BLOOD COUNT 3.75 10*6/uL (4.50-5.90); RED CELL DISTRI WIDTH 16.6 % (0-14.5); WHITE BLOOD COUNT 20.1 10*3/uL (4.8-10.8)
[2017-08-27 07:03] LABS: HEMOGLOBIN 9.7 g/dl (14.0-18.0)
[2017-08-27 07:12] LABS: ALBUMIN 2.5 gm/dl (3.1-4.5); ALKALINE PHOSPHATASE 63 U/L (45-117); BUN 23 mg/dl (7-24); CHLORIDE 106 mmol/L (98-107); CREATININE 0.78 mg/dL (0.70-1.30); POTASSIUM 4.5 mmol/L (3.5-5.1); SGOT/AST 13 IU/L (3-35); SGPT/ALT 15 U/L (12-78); SODIUM 141 mmol/L (136-145)
[2017-08-27 07:55] LABS: ATYPICAL LYMPHS 1 % (0-0); BASOPHILS 1 % (0-1); PLATELET SUFFICIENCY NORMAL (NORMAL); TOTAL CELLS COUNTED 100 #CELLS
[2017-08-27 08:00] VITALS: BP 155/72
[2017-08-27 14:11] LABS: HEMATOCRIT 32.1 % (42.0-52.0)
[2017-08-27 16:00] VITALS: BP 125/58
[2017-08-27 18:36] LABS: BILIRUBIN NEGATIVE (NEGATIVE); BLOOD 1+ (NEGATIVE); CLARITY CLOUDY (CLEAR); COLOR YELLOW (YELLOW); GLUCOSE NEGATIVE (NEGATIVE); KETONE NEGATIVE (NEGATIVE); LEUKO ESTERASE 3+ (NEGATIVE); NITRITE POSITIVE (NEGATIVE); SPECIFIC GRAVITY <= 1.005 (1.005-1.030); UROBILINOGEN 0.2 E.U./dl (0.2-1.0)
[2017-08-27 18:41] LABS: BACTERIA 4+; EPITHELIAL CELLS 0-2; MUCOUS TRACE; WBC TNTC wbc/hpf (0-5)
[2017-08-27 20:00] VITALS: BP 134/58
[2017-08-28 01:10] VITALS: BP 142/75
[2017-08-28 07:33] LABS: BASO # 0.1 10*3/uL (0.0-0.1); BASO % 0.8 % (0.0-1.0); EOS # 0.5 10*3/uL (0.0-0.4); EOS % 4.4 % (1.0-4.0); HEMATOCRIT 30.6 % (42.0-52.0); HEMOGLOBIN 9.5 g/dl (14.0-18.0); LYMPH # 1.8 10*3/uL (1.3-4.4); LYMPH % 15.3 % (27.0-41.0); MEAN CELL VOLUME 81.6 fl (80.0-94.0); MEAN CORPUSCULAR HGB 25.3 pg (27.0-31.0); MEAN PLATELET VOLUME 9.9 fl (9.6-12.3); MONO # 1.3 10*3/uL (0.1-1.0); MONO % 10.9 % (3.0-9.0); NEUT % 68.2 % (47.0-73.0); PLATELET COUNT AUTOMATED 259 10*3/uL (130-400); RED BLOOD COUNT 3.75 10*6/uL (4.50-5.90); RED CELL DISTRI WIDTH 16.7 % (0-14.5); WHITE BLOOD COUNT 11.7 10*3/uL (4.8-10.8)
[2017-08-28 08:00] VITALS: BP 136/72
[2017-08-28] MEDS ORDERED: CEFUROXIME AXE250 MG PO (08:35)
[2017-08-28] MEDS ORDERED: CARAFATE1 GM PO (08:38)
[2017-08-28 16:00] VITALS: BP 135/64
== END 2017-08-28 17:39 | disposition hospice, home (50) | DRG 871 ==
LOC: ED 05:56 → 5E 08:43
PROVIDERS: Family Medicine; Internal Medicine Gastroenterology; Student in an Organized Health Care Education/Training Program
DX: A41.9 Sepsis, unspecified organism (principal); K29.71 Gastritis, unspecified, with bleeding; Z93.0 Tracheostomy status; I48.91 Unspecified atrial fibrillation; I50.9 Heart failure, unspecified; I13.0 Hypertensive heart and chronic kidney disease with heart failure and stage 1 through stage 4 chronic kidney disease, or unspecified chronic kidney disease; N39.0 Urinary tract infection, site not specified; Z66 Do not resuscitate; N18.9 Chronic kidney disease, unspecified; R65.20 Severe sepsis without septic shock; Z51.5 Encounter for palliative care; R62.7 Adult failure to thrive; M54.9 Dorsalgia, unspecified; G89.4 Chronic pain syndrome; J44.9 Chronic obstructive pulmonary disease, unspecified; E03.9 Hypothyroidism, unspecified; Y83.8 Other surgical procedures as the cause of abnormal reaction of the patient, or of later complication, without mention of misadventure at the time of the procedure; B96.89 Other specified bacterial agents as the cause of diseases classified elsewhere; Z85.21 Personal history of malignant neoplasm of larynx; Z82.49 Family history of ischemic heart disease and other diseases of the circulatory system; Z79.899 Other long term (current) drug therapy; T83.511S Infection and inflammatory reaction due to indwelling urethral catheter, sequela; Z87.891 Personal history of nicotine dependence; Z68.26 Body mass index [BMI] 26.0-26.9, adult